=== PATIENT | female | born 2000 | race Caucasian/White ===

== ENCOUNTER 2025-05-30 17:28 | Emergency (ER) | payer OTHER, SELFPAY ==
--- OUTSIDE RECORDS SUMMARY | 2025-05-30 17:29 | XMS_ITS | Referral Summary ---
Author Organization [address] [address] Care Team Providers Care Xray Tech Name Role Phone Unknown, Notinfile Primary Care Provider Unavail able Encounters Date Type Department Care Team Description 05/23/2025 2:15 PM CDT Office Visit [facility]ient Care at [address] [address] Cassandra Azul NP Other specified hearing loss of both ears (Primary Dx); Impacted cerumen of right ear from Last 3 Months Allergies No known active allergies Medications norgestimate-ethin yl estradioL (Sprintec, 28,) 0.25-35 mg-mcg per tablet 10/18/2019 Active Active Problems Problem Noted Date Diagnosed Date Migraine headache 03/04/2014 Arthralgia of hip 04/20/2013 Social History Tobacco Use Types Packs/Day Years Used Date Smoking Tobacco: Never Assessed Comments Unknown Sex and Gender Information Value Date Recorded Sex Assigned at Not on file Legal Sex Female 3:18 AM CODE OFFICIAL Gender Identity Not on file Sexual Orientation Not on file Last Filed Vital Signs Vital Sign Reading Time Taken Comments Blood Pressure 120/62 05/23/2025 1:57 PM CDT Pulse 126 05/23/2025 1:57 PM CDT Temperature 37.1 C (98.7 F) 05/23/2025 1:57 PM CDT Respiratory Rate 16 05/23/2025 1:57 PM CDT Oxygen Saturation 99% 05/23/2025 1:57 PM CDT Inhaled Oxygen Concentration - - Weight 56.7 kg (125 lb) 05/23/2025 1:57 PM CDT Height 167.1 cm (5' 5.79) 03/04/2014 10:05 AM C DT Body Mass Index - - Plan of Treatment Not on file Procedures Procedure Name Priority Date/Time Associated Diagnosis Comments [place] REMOVAL IMPACTED CERUMEN INSTRUMENTATION UNILAT Routine 05/23/2025 2:15 PM CDT Impacted cerumen of right ear from Last 3 Months Results * [place] REMOVAL IMPACTED CERUMEN INSTRUMENTATION UNILAT (05/23/2025 2:15 PM CDT) Narrative Cassandra Azul NP - 05/23/2025 2:15 PM CDT Cassandra Azul NP 05/23/2025 2:12 PM Ear Cerumen Removal Performed by: Cassandra Azul NP Authorized by: Cassandra Azul NP Consent Given by: Patient Verbal consent obtained: Yes Location: R ear R ear cerumen impacted?: Yes R ear method of removal: Instrumentation R ear instrumentation: Curette R ear magnification: Otoscope Inspection: TM intact Hearing quality: Improved Patient tolerance: Patient tolerated the procedure well with no immediate complications Cassandra Azul NP IN CLINIC/BEDSIDE ORDERABLES F inal Result from Last 3 Months Insurance [facility] [place] [address] Care Teams Xray Tech Relationship Specialty Start Date End Date Unknown, Notinfile PCP - General 11/23/24
--- OUTSIDE RECORDS SUMMARY | 2025-05-30 17:29 | XMS_ITS | Clinical Summary ---
Author Organization [address] [address] Care Team Providers Care Final Block Press Operator Name Role Phone Unknown, Notinfile Primary Care Provider Unavail able Allergies No known active allergies Medications norgestimate-ethin yl estradioL (Sprintec, 28,) 0.25-35 mg-mcg per tablet 10/18/2019 Active Active Problems Problem Noted Date Diagnosed Date Migraine headache 03/04/2014 Arthralgia of hip 04/20/2013 Encounters Date Type Department Care Team Description 05/23/2025 2:15 PM CDT Office Visit [facility] Convenient Care at [address] [address] Cassandra Azul NP Other specified hearing loss of both ears (Primary Dx); Impacted cerumen of right ear from Last 3 Months Social History Tobacco Use Types Packs/Day Years Used Date Smoking Tobacco: Never Assessed Comments Unknown Sex and Gender Information Value Date Recorded Sex Assigned at Not on file 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 Gender Identity Not on file Sexual Orientation Not on file Obstetrics History Last Filed Vital Signs Vital Sign Reading [...] Mass Index - - Plan of Treatment Health Maintenance Due Date Last Done Comments Cervical Cancer Screening 2000 Depression Screening 2000 Hepatitis C Screening 2000 Regular Well Visit/Exam 18-64 2018 DTaP/Tdap/Td Vaccine (7 - Td or Tdap) 05/02/2022 05/02/2012, 06/27/2006, 11/21/2001, Additional history exists Covid-19 Vaccine (3 2023-2 5 season) 2024 07/28/2021, 06/23/2021 Influenza Vaccine (#1) 2025 7, 09/18/2015, 11/25/2003, Additional history exists Hepatitis B Screening Completed 08/30/2001 , 02/16/2001, 2000 Pneumococcal vaccine <65 Completed 002, 02/16/2001, 2000, Additional history exists Varicella Vaccines Completed 04/10/2010, 08/30/2001 HPV Vaccines Completed 11/02/2012, 06/15, 05/02/2012 Procedures Procedure Name Priority Date/Time Associated Diagnosis Comments [place] REMOVAL IMPACTED CERUMEN INSTRUMENTATION UNILAT Routine 05/23/2025 2:15 PM CDT Impacted cerumen of right ear from Last 3 Months Results * [place] REMOVAL IMPACTED CERUMEN INSTRUMENTATION UNILAT (05/23/2025 2:15 [...] the procedure well with no immediate complications us Cassandra Azul NP IN CLINIC/BEDSIDE ORDERABLES F inal Result from Last 3 Months Insurance [facility] CHOICE PLUS [place] [id number] Care Teams Final Block Press Operator Relationship Specialty Start Date End Date Unknown, Notinfile PCP - General 11/23/24
--- OUTSIDE RECORDS SUMMARY | 2025-05-30 17:29 | XMS_ITS | Data Portability ---
Author Organization [facility], [id number] Address [address] [place] [address] Assessment No assessment recorded. Plan of Treatment Reminders Order Date Submit Date Provider Last Modified By Organization Details Last Modified Time Details Appointments ANNUAL- EST 15 2025 03:00P M CRYSTAL DUCKWORTH WHNP Not available Not available Not available Lab pap, LB 2024 025 [place] [facility] ([facility]), [address] , [place] [address], [place], [address], 03/25/2025 16:55:44 Referral None recorded. Procedures None recorded. Surgeries None recorded. Imaging None recorded. Medication Orders Sprintec (28) 0.25 mg-0.035 mg tablet 2024 025 [place] [id number], [address] [place], [place], [id number], 03/20/2025 16:28:33 Patient TargetsNo targets recorded. Patient InstructionsNo instructions recorded. Reason for Referral None Reported. Results Created Date Observation Date Name Description Value Unit Range Abnormal Flag Note LastModifiedBy Organization Detail LastModifiedTime 03/20/2003/25/2025 PAP TEST THIN PREP Pap test thin prep Negati ve for Intrae pithel ial Lesion or Malign desiree normal ACCES KADEN #: [id number] Sourc e: Cervi олег/E ndoce rvica l LMP: Date Taken : 03/20 Speci men Type: ThinP rep Vial Date Repor gege: 2024 Clini олег Data: NG Last Pap: nl ( 2) Cytot ech: Mira Jean , CT( CP) Date Repor gege: 2024 Revie wed By: Elvira Galicia y, CT( CP) Speci men Adequ acy: Satis facto ry for evalu ation No endoc ervic al/tr ansfo rmati on zone compo nent prese nt Gener al Categ oriza tion: NEGAT GORDO FOR INTRA EPITH ELIAL LESIO N OR MALIG AMIRAH This speci men has been yojana zed by the ThinP rep Imagi ng Syste m, an inter activ e compu ter syste m which rosie ts the lab in the scree fransisca of ThinP rep Pap Test slide s. Follo wing imagi ng, the slide was revie wed by a Cytot echno logis t and/o r Patho logis t. Cervi олег cytol ogy is a scree fransisca test prima rily for squam ous cance rs and precu rsors and has assoc iated false -nega tive and false -posi tive resul ts. New techn ologi es such as liqui d-bas ed prepa ratio ns may decre ase but will not elimi lashon all false -nega tive resul ts. Regul ar sampl ing and follo w-up of unexp vishnu d clini олег signs and sympt oms are recom shayla d to minim ize false negat gordo resul ts. End of Repor t Techn ical servi jesus provi ded by [facility] [employer] [employer], [address] [place] [address] Genny amanda MD, Labor ator Dire tor. Case revie wed and diagn osis rende red at [facility], [employer], [address] [place] [address] Genny amanda MD, Labor atory [facility] tor. JEEVANI DENTI AL Not Available [facility] ([facility]) [address], [place], [address], 03/25/2025 16:55:44 Result Notes None recorded. Problems Name Problem SNOMED Code Status Onset Date Resolution Date Notes Provider Name and Address Organization Details Recorded Time Migraine 37786334 Active Migraine, - Phreesia 7 Problem Code: 346.90; Problem Code Type: ICD-9; Not Available [facility] 12:36:51 Problem Notes None recorded. Procedures Surgical History Date Name Laterality Status Provider Name and Address Organization Details Recorded Time 07/15/2022 Date of Last Pap Smear completed [facility] 03/20/2025 15:54:33 Imaging Results None recorded. Procedure Notes None recorded. Medical Equipment None Reported. Allergies No known drug allergies Medications Name Sig Start Date Stop Date Status Note LastModified by Organization Details LastModified Time Sprintec (28) 0.25 mg-0.035 mg tablet TAKE 1 TABLET BY MOUTH EVERY DAY active Not Available Not Available No t Available Vitals Date Recorded Body height Body mass index (BMI) Body weight Systolic And Diastolic Provider Name and Address Organization Details Last Updated DateTime 03/20/2025 168.28 cm 19.7 kg/m2 79953.86 g 122/64 mm[Hg] [facility] 03/20/2025 15:59:55 Social History Question Answer Notes LastModified by Organizat ion Details LastModified Time Do You Have An Advance Directive? No Information not available 03/20/2025 If You Are , What Was Your Level Of Alcohol Consumption Prior To ? None Information not available 03/20/2025 How Many Years Have You Consumed Alcohol? 8 Information not available 03/20/2025 What Is Your Level Of Caffeine Consumption? Occasional Information not available 03/20/2025 What Type Of Diet Are You Following? REGULAR Information not available 03/20/2025 How Many Times Per Week Do You Exercise? Less Than 1 Time Per Week SocialHist oryQuestio n: 'Active But No Formal Exercise'; Information not available 03/14/2025 What Is Your Relationship Status? Other Note: Single Information not available 03/14/2025 Sex: Female Functional Status Question Answer Note LastModified by Organizat ion Details LastModified Time Do you use any illicit or recreational drugs? No Information not available 03/14/2025 What is your level of alcohol consumption? Occasional Qty: 0-2 per day Information not available 03/14/2025 Are you currently employed? 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 Family History Relationship Description Onset Age of this Age Resolved Age Notes LastModified by Organization Details LastModified Time Maternal Grandmother History taken NOS Other MGM- MS, Mother - Graves Diesae s API-27 Not available 03/20/2025 15:52:29 Maternal Grandmother Parkinson's disease [place] son's Diseas e API-27 Not available 03/20/2025 15:52:29 Mother History taken NOS Other MGM- MS, Mother - Graves Diesae s API-[email or web address] Not available 03/20/2025 15:52:29 Mother Kidney stone Kidney Stones - API-27 Not available 03/20/2025 15:52:29 Unspecified Relation Family history taken Family Medica l Histor y Review ed 023- jl API-27 Not available 03/20/2025 15:52:29 Maternal Grandfather Cerebrovascu lar accident Stroke [email or web address] Not available 11/2024 15:47:25 Maternal Grandfather Malignant neoplastic disease Cancer fa-thr oat, liver, mgf-son ng,pgf -lung Not available 03/14/2025 15:47:26 Maternal Grandmother Multiple sclerosis Multip le Sclero sis Not available 03/14/2025 15:47:25 Father Malignant neoplastic disease Cancer fa-thr oat, liver, mgf-son ng,pgf -lung Not available 03/14/2025 15:47:26 Paternal Grandfather Malignant neoplastic disease Cancer fa-thr oat, liver, mgf-son ng,pgf -lung Not available 03/14/2025 15:47:26 Medical History Condition Response ID-Other Y Cancer- Genetic screening Neurology- Headaches/Migraines Y Reviewed with no changes Y Gynecological History Statement/Question Response 13 History of PCOS N Flow Moderate History of Fibroids N Date of LMP 03/12/2025 History of Infertility N History of Vulvar Dysplasia N History of Cervical Dysplasia N Current Control Method: Condoms Duration of Flow (days) No more than 4 t ypically Age at Menarche 13 Current Control Method Condoms History of Recurrent Ovarian Cysts Y Age at first intercourse 16 HPV Vaccine Completed History of Endometriosis N Sexually Active? Y History of Dysmenorrhea N Menses Monthly Y Date of Last Pap Smear 07/15/2022 Sexual Problems? N History of Sexually Transmitted Infectio n N Obstetrics History GPAL:G 0 P 0 0 0 0 Type Value Multiple Births 0 Full Term 0 Induced 0 Spontaneous 0 Premature 0 Living 0 Ectopics 0 Total 0 Past Encounters Encounter ID Performer Location Encounter Start Date Encounter Closed Date Diagnosis/Indication Diagnosis SNOMED-CT Code Diagnosis ICD10 Code Diagnosis Note [id number] XIMENA ANDERSON RD, MD [id number] [facility] [address] [place] [address] 03/20/2025 15:48:12 03/20/2025 16:29:17 Screening for malignant neoplasm of cervix 993189522 Z12.4 -pap today Gynecologi c examination 49200506 Z01.419 -f/u 1 year for annual ASSISTANT WOMEN'S BASKETBALL COACH exam Initial pr escription of oral contraception 686989907 Z30.011 03/20/25-res tart sprintec-c all if any problems-d enies hx of migraine with aura, liver disease, or personal/f amily hx of blood clots/bloo d clotting disorders Depression screening 171 857678 Z13.31 03/20/25-sco re 3 Health Concerns Section Related Observation LastModified by Organization Detai ls LastModified Time None Recorded Concern Status LastModified by Organization Details LastModified Time None Recorded Advance Directives Directive N: Payers Insurance Date Sequence Insurance Name Policy Number Policy Cronin Covered Member ID Cronin Member ID Guarantor Name 03/29/2025 1 [facility] [id number] Casandra Franklin [id number] Casandra Franklin Notes Date Note Type Note Provider Name and Address Organization Details Recorded Time 03/20/2025 text/html [facility] Annual Well-Women Visit Age 21-29Reported bypatient.Current Medical History:reviewed and documented Relevant Family History:family history of breast cancer(paternal grandmother-post menopausal dx) Last Pap smear:due Contraceptive Method:contracept gordo method: condoms;unsatisfi ed with current method; would like to restart cocp-used sprintec in the past-was changed to devin by pharmacy and felt like it made her feel different Sexually Active:Yes: same partner STI Screen:declines STI testing Menstrual cycle:normal menstrual cycle and flow; Cramps: yesNotes:03/20/25 would like to restart cocp. denies hx of migraine with aura, liver disease, or personal/family hx of blood clots or blood clotting disorders. -[facility] CRYSTAL GIBSON [address], [place], [address], [facility] 03/20/2025 17:11:17 OBGyn Episode No OBEpisode recorded.
--- OUTSIDE RECORDS SUMMARY | 2025-05-30 17:29 | XMS_ITS | Clinical Summary ---
Author Organization [facility] Address [address] [place] [address] Care Team Providers Care Credit Coordinator Name Role Phone None, Provider MD Primary Care Provider Unavaila ble Allergies No known active allergies Medications SPRINTEC 28 0.25-35 MG-MCG tablet 10/18/2019 Active Family History Medical History Relation Comments Cancer Father Multiple Sclerosis Maternal Grandfather Cancer Maternal Grandmother Heart Disease Paternal Grandmother Relation Status Comments Father Maternal Grandfather Maternal Grandmother Paternal Grandmother Social History Tobacco Use Types Packs/Day Years Used Date Smoking Tobacco: Former Electronic Cigarettes Smokeless Tobacco: Never Alcohol Use Standard Drinks/Week Comments No 0 (1 standard drink = 0.6 oz pur e alcohol) AUDIT-C Answer Date Recorded Frequency of Alcohol Consumption Never 07/16/2019 Average Number of Drinks Not on file 019 Frequency of Binge Drinking Not on file 12/2018 Comments No Sex and Gender Information Value Date Recorded Sex Assigned at Not on file Legal Sex Female 7:49 PM CDT Gender Identity Not on file Sexual Orientation Not on file Last Filed Vital Signs Vital Sign Reading Time Taken Comments Blood Pressure 145/81 11/10/2019 11:55 AM GRID CASTER Pulse 106 11/10/2019 11:55 AM GRID CASTER Temperature 36.7 C (98.1 F) 11/10/2019 11:55 AM GRID CASTER Respiratory Rate 18 11/10/2019 11:55 AM GRID CASTER Oxygen Saturation 99% 11/10/2019 11:55 AM GRID CASTER Inhaled Oxygen Concentration - - Weight 68 kg (150 lb) 11/10/2019 11:55 AM GRID CASTER Height 172.7 cm (5' 8) 11/10/2019 11:55 AM GRID CASTER Body Mass Index 22.81 11/10/2019 11:55 AM GRID CASTER Plan of Treatment Health Maintenance Due Date Last Done Comments Cervical Cancer Screening Pap Smear (Age 21 to 29) Every 3 Years 2000 Cervical Cancer Screening 2000 Annual Physical 2003 Hepatitis C 2018 DTaP, Tdap and Td Vaccines (1 - Tdap) 2019 Hepatitis B Vaccines (1 of 3 - 19+ 3-dose series) 2019 COVID-19 Vaccine (2023- season) 2024 07/28/2021, 06/23/2021 Pneumococcal Vaccine: Pediatrics (0 to 5 Years) and At-Risk Patients (6 to 49 Years) Completed 11/21/2001, 02/16/2001, 2000, Additional history exists HPV Vaccines Completed 11/02/2012, 06/15, 05/02/2012 Meningococcal Vaccine Completed 10/04/2017, 012 Chlamydia Screening Females ages 16-24 Discontinued 03/13/2019 Meningococcal B Vaccine Aged Out No l onger eligible based on patient's age to complete this topic RSV Immunizations Under 20 Months Aged Out No longer eligible based on patient's age to complete this topic Procedures Procedure Name Priority Date/Time Associated Diagnosis Comments C.TRACHOMATIS RNA TMA Routine 03/13/2019 2:08 PM CDT from Last 3 Months or Most Recently Relevant to Health Maintenance Results * C.TRACHOMATIS RNA TMA (03/13/2019 2:08 PM CDT) SPECIMEN SOURCE URINE 9 2:09 PM CDT [facility] CHLAMYDIA TRACHOMATIS RNA TMA Not Detected Not Detected 03/16/2019 4:07 AM CDT [facility] ASHA OLIVARES Comment: This test was performed using the APTIMA COMBO2(R)Assay (GEN-PROBE(R)).The analytical performance characteristics of thisassay, when used to test SurePath(R) specimens havebeen determined by [employer].Test Performed by Yasmany EspinosaFabrus [facility],[address] [place], [place] [address]Uekaeanvalerio Vora M.D., Ph.D., Director of [phone], [place] [id number] MISCELLANEOUS SAMPLES / Unknown 03/13/2019 2:08 PM CDT 03/13/2019 2:08 PM CDT us Generic Conversion Md SIDHU MICROBIOLOGY - GENERAL ORDERABLES Final Result [facility] [address] [place], [place] , [place] [phone] [facility] [address] [place] [address], from Last 3 Months or Most Recently Relevant to Health Maintenance Insurance [facility] Care Teams Credit Coordinator Relationship Specialty Start Date End Date None, Provider, PCP - General 07/16/19
[2025-05-30 17:31] VITALS: BP 146/92; PULSE 90; RESP 16; TEMP 36.4; O2SAT 98
--- OUTSIDE RECORDS SUMMARY | 2025-05-30 20:33 | XMS_ITS | Clinical Summary ---
Author Organization [address] [address] Care Team Providers Care Consumer Studies Professor Name Role Phone Unknown, Notinfile Primary Care Provider Unavail able Allergies No known active allergies Medications norgestimate-ethin yl estradioL (Sprintec, 28,) 0.25-35 mg-mcg per tablet 10/18/2019 Active Active Problems Problem Noted Date Diagnosed Date Migraine headache 03/04/2014 Arthralgia of hip 04/20/2013 Encounters Date Type Department Care Team Description 05/23/2025 2:15 PM CDT Office Visit [facility] Convenient Care at [address] [address] Cassandra Azul NP Other specified hearing loss of both ears (Primary Dx); Impacted cerumen of right ear from Last 3 Months Social History Tobacco Use Types Packs/Day Years Used Date Smoking Tobacco: Never Assessed Comments Unknown Sex and Gender Information Value Date Recorded Sex Assigned at Not on file 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
--- OUTSIDE RECORDS SUMMARY | 2025-05-30 20:33 | XMS_ITS | Clinical Summary ---
Author Organization [facility] Address [address] [place] [address] Care Team Providers Care Radar Air Traffic Controller Name Role Phone None, Provider MD Primary [...] Comments Blood Pressure 145/81 11/10/2019 11:55 AM PAPERHANGER ASSISTANT Pulse 106 11/10/2019 11:55 AM PAPERHANGER ASSISTANT Temperature 36.7 C (98.1 F) 11/10/2019 11:55 AM PAPERHANGER ASSISTANT Respiratory Rate 18 11/10/2019 11:55 AM PAPERHANGER ASSISTANT Oxygen Saturation 99% 11/10/2019 11:55 AM PAPERHANGER ASSISTANT Inhaled Oxygen Concentration - - Weight 68 kg (150 lb) 11/10/2019 11:55 AM PAPERHANGER ASSISTANT Height 172.7 cm (5' 8) 11/10/2019 11:55 AM PAPERHANGER ASSISTANT Body Mass Index 22.81 11/10/2019 11:55 AM PAPERHANGER ASSISTANT Plan of Treatment Health Maintenance Due Date [...] SPECIMEN SOURCE URINE 9 2:09 PM CDT [facility] CHLAMYDIA TRACHOMATIS RNA TMA Not Detected Not Detected 03/16/2019 4:07 AM CDT [facility] ASHA OLIVARES Comment: This test was performed using the APTIMA COMBO2(R)Assay (GEN-PROBE(R)).The analytical performance characteristics of thisassay, when used to test SurePath(R) specimens havebeen determined by [employer].Test Performed by Yasmany EspinosaInterstate Data [employer] Saskia [facility],[address] [place], [place] [address]Nzsesamvalerio Vora M.D., Ph.D., Director of [phone], [place] [id number] MISCELLANEOUS SAMPLES / Unknown 03/13/2019 2:08 PM CDT 03/13/2019 2:08 PM CDT us Generic Conversion Md SIDHU MICROBIOLOGY - GENERAL ORDERABLES Final Result [employer] CarsGR[facility] [address] [place], [place] , [place] [phone] [facility] [address] [place] [address], from Last 3 Months or Most Recently Relevant to Health Maintenance Insurance [facility] Care Teams Radar Air Traffic Controller Relationship Specialty Start Date End Date None, Provider, PCP - General 07/16/19
--- OUTSIDE RECORDS SUMMARY | 2025-05-30 20:33 | XMS_ITS | Referral Summary ---
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 CHOICE PLUS Care Teams Chief Executive Officer Relationship Specialty Start Date End Date Unknown, Notinfile PCP - General 11/23/24
--- NOTE | 2025-05-30 20:54 | ED.EAR ---
HPI - Ear Problem General Chief complaint: Ear Stated complaint: hearing loss Time Seen by Provider: 05/30/25 20:11 History of Present Illness HPI Narrative: 24-year-old otherwise healthy female presenting with left ear symptoms including muffled hearing and some lymph node enlargement bilaterally. No trauma or injury. Went to urgent care last week and had some ear wax that was removed. She is concerned about potential infection. No history of otitis. No nausea, vomiting, headache, vision changes, neck stiffness or restricted range of motion. Has not seen ENT and has appointment in July. Has tried ibuprofen and did relieve some of her symptoms. Has not tried any other decongestants or anti-inflammatory measures although her urgent care visit did recommend starting this her symptoms. Related Data Allergies Allergy/AdvReac Type Severity Reaction Status Date / Time No Known Allergies Allergy Unverified 11/27/16 19:21 Review of Systems Review of Systems: As reviewed above in HPI Exam Narrative: GENERAL: [Well-appearing, well-nourished, and in no acute distress.] HEAD: [Normocephalic, atraumatic.] EYES: [PERRLA and EOMI.] ENT: Nares clear, no rhinorrhea or epistaxis. Mucous membranes moist. No mastoid tenderness, no tenderness on TMJ, left-sided middle your has a effusion without any redness, bulging, purulent drainage or signs of infection. Contralateral side without any effusion or a otitis signs. NECK: Mild lymphadenopathy in the neck that is tender but otherwise supple without any meningismus signs or restricted range of motion. CHEST: Symmetric chest rise, no respiratory distress HEART: Normal rate rhythm EXTREMITIES: Normal range of motion. Ambulatory without edema SKIN: Warm, dry, no rash. NEURO: [No focal deficits]. Alert and oriented [x3.] PSYCH: [Normal mood and affect.] Course Vital Signs Vital signs: Vital Signs Temperature 36.4 C 05/30/25 17:31 Pulse Rate 90 05/30/25 17:31 Respiratory Rate 16 05/30/25 17:31 Blood Pressure 146/92 H 05/30/25 17:31 Pulse Oximetry 98 05/30/25 17:31 Oxygen Delivery Room Air 05/30/25 17:31 Temperature 36.4 C 05/30/25 17:31 Pulse Rate 90 05/30/25 17:31 Respiratory Rate 16 05/30/25 17:31 Blood Pressure 146/92 H 05/30/25 17:31 Pulse Oximetry 98 05/30/25 17:31 Oxygen Delivery Room Air 05/30/25 17:31 Medical Decision Making MDM Narrative Medical decision making narrative: 24-year-old otherwise healthy female presenting with left ear symptoms including muffled hearing and some lymph node enlargement bilaterally. No trauma or injury. Went to urgent care last week and had some ear wax that was removed. She is concerned about potential infection. No history of otitis. No nausea, vomiting, headache, vision changes, neck stiffness or restricted range of motion. Has not seen ENT and has appointment in July. Has tried ibuprofen and did relieve some of her symptoms. Has not tried any other decongestants or anti-inflammatory measures although her urgent care visit did recommend starting this her symptoms. Patient's examination reveals a middle ear effusion left-sided but no clinical findings of an otitis or bacterial infection, likely viral in nature or reactive effusion. She is afebrile. Went over recommendations at this time for decongestant therapies and anti-inflammatory measures with options for potential antibiotics if concern for bacterial infectious pathology remains, but patient felt comfortable with current regimen plans of ibuprofen, Claritin, Flonase and follow-up with the ENT. New ENT referral was provided as well as per prescriptions. Patient is safe for discharge home at this time. Questions were answered and she was given return precautions. Medical Records Medical records reviewed: Yes I reviewed the external patient's medical records. Vital Signs Vital Signs: Vital Signs Temperature 36.4 C 05/30/25 17:31 Pulse Rate 90 05/30/25 17:31 Respiratory Rate 16 05/30/25 17:31 Blood Pressure 146/92 H 05/30/25 17:31 Pulse Oximetry 98 05/30/25 17:31 Oxygen Delivery Room Air 05/30/25 17:31 Temperature 36.4 C 05/30/25 17:31 Pulse Rate 90 05/30/25 17:31 Respiratory Rate 16 05/30/25 17:31 Blood Pressure 146/92 H 05/30/25 17:31 Pulse Oximetry 98 05/30/25 17:31 Oxygen Delivery Room Air 05/30/25 17:31 Discharge Plan Discharge Clinical Impression: Acute LUCITA (middle ear effusion) Patient Disposition: Home Condition: Stable Instructions: Antibiotic Form, Earache (ED) Additional Instructions: Your examination findings do show a small effusion (fluid collection) in your left ear which is likely the cause of your symptoms but there are no signs or concerning evidence for a bacterial infection based on the exam and historical features. This could very well be a viral infection causing fluid given your lymph node enlargement but do not believe an antibiotic course would help in this case. Recommendations at this time or for decongestants such as Claritin daily, Flonase twice daily, around the clock anti-inflammatories with 600 mg ibuprofen every [id number] hours for symptom control. Return precautions include developing intractable fevers, pain developing in the ear, drainage from the ear, neck stiffness, inability to hear, or any other concerns that are felt to be emergent. Will refer you to an research and development scientist for outpatient follow-up. Patient Language: Bulgarian Prescriptions: New loratadine [Claritin] 10 mg tablet 10 mg PO DAILY Qty: 30 0RF fluticasone propionate [Flonase Allergy Relief] 50 mcg/actuation spray,suspension 1 spray intranasal BID Qty: 16 0RF Rx Instructions: administer into each nostril ibuprofen 600 mg tablet 600 mg PO TID Qty: 30 0RF Follow-up/Referrals: Lashay White MD [Primary Care Provider] - Shahram Kaye MD [Physician] - 1 Week (ear effusion, muffled hearing) Time of Disposition: 20:52
== END 2025-05-30 21:07 | disposition home or self-care (01) ==
PROVIDERS: Emergency Provider Student in an Organized Health Care Education/Training Program; PCP Pediatrics
DX: H92.02 Otalgia, left ear (principal)
CPT/HCPCS: 99283

== ENCOUNTER 2025-06-24 08:21 | Outpatient (CLI) | payer OTHER, SELFPAY ==
--- OUTSIDE RECORDS SUMMARY | 2025-06-24 08:28 | XMS_ITS | Clinical Summary ---
Author Organization [facility] Address [address] [place] [address] Care Team Providers Care Record Filing Clerk Name Role Phone None, Provider MD Primary [...] Comments Blood Pressure 145/81 11/10/2019 11:55 AM [facility] PH[facility]IC[facility] Pulse 106 11/10/2019 11:55 AM [facility] PHYSICIAN Temperature 36.7 C (98.1 F) 11/10/2019 11:55 AM [facility] PHYSICIAN Respiratory Rate 18 11/10/2019 11:55 AM [facility] PHYSICIAN Oxygen Saturation 99% 11/10/2019 11:55 AM [facility] PH[facility]ICIAN Inhaled Oxygen Concentration - - Weight 68 kg (150 lb) 11/10/2019 11:55 AM [facility] PHYSICIAN Height 172.7 cm (5' 8) 11/10/2019 11:55 AM [facility] PH[facility]ICIAN Body Mass Index 22.81 11/10/2019 11:55 AM [facility] PHYSICIAN Plan of Treatment Health Maintenance Due Date [...] SPECIMEN SOURCE URINE 9 2:09 PM CDT [facility] CHLAMYDIA TRACHOMATIS RNA TMA Not Detected Not Detected 03/16/2019 4:07 AM CDT [facility] ASHA OLIVARES Comment: This test was performed using the APTIMA COMBO2(R)Assay (GEN-PROBE(R)).The analytical performance characteristics of thisassay, when used to test SurePath(R) specimens havebeen determined by [employer].Test Performed by [facility],[address] [place], [place] [address]Mjcwbiuvalerio Vora M.D., Ph.D., Director of [phone], [place] [id number] MISCELLANEOUS SAMPLES / Unknown 03/13/2019 2:08 PM CDT 03/13/2019 2:08 PM CDT us Generic Conversion Md [facility] - GENERAL ORDERABLES Final Result [facility] [address] [place], [place] , [place] [phone] [facility] [address] [place] [address], from Last 3 Months or Most Recently Relevant to Health Maintenance Insurance [facility] Care Teams Record Filing Clerk Relationship Specialty Start Date End Date None, Provider, PCP - General 07/16/19
--- OUTSIDE RECORDS SUMMARY | 2025-06-24 08:28 | XMS_ITS | Clinical Summary ---
Author Organization [address] [address] Care Team Providers Care Blood Collector Name Role Phone Unknown, Notinfile Primary Care Provider Unavail able Allergies No known active allergies Medications norgestimate-ethin yl estradioL (Sprintec, 28,) 0.25-35 mg-mcg per tablet 10/18/2019 Active Active Problems Problem Noted Date Diagnosed Date Migraine headache 03/04/2014 Arthralgia of hip 04/20/2013 Encounters Date Type Department Care Team Description 05/23/2025 2:15 PM CDT Office Visit [facility] at [address] [address] Cassandra Azul NP Other specified hearing loss of both ears (Primary Dx); Impacted cerumen of right ear from Last 3 Months Social History Tobacco Use Types Packs/Day Years Used Date Smoking Tobacco: Never Assessed Comments Unknown Sex and Gender Information Value Date Recorded Sex Assigned at Not on file Legal Sex Female 3:18 AM LICENSED PROSTHETIST Gender Identity Not on file Sexual Orientation [...] Procedure Name Priority Date/Time Associated Diagnosis Comments [place] REMOVAL IMPACTED CERUMEN INSTRUMENTATION UNILAT Routine 05/23/2025 2:15 PM CDT Impacted cerumen of right ear from Last 3 Months Results * [place] REMOVAL IMPACTED CERUMEN INSTRUMENTATION UNILAT (05/23/2025 2:15 [...] inal Result from Last 3 Months Insurance [facility] [employer] HMO/PPO Address: [address] [phone] Care Teams Blood Collector Relationship Specialty Start Date End Date Unknown, Notinfile PCP - General 11/23/24
== END 2025-06-24 08:22 | disposition home or self-care (01) ==
LOC: ANHAUDASC 08:23
PROVIDERS: PCP Pediatrics; Visit Provider Otolaryngology
DX: H91.93 Unspecified hearing loss, bilateral (principal); H93.13 Tinnitus, bilateral
CPT/HCPCS: 92557; 92567